=== PATIENT | male | born 2000 | race Caucasian/White ===

== ENCOUNTER 2022-04-05 13:03 | Emergency (ER) | payer SELFPAY ==
[~2022-04-05] VITALS: Ht 152 cm; Wt 74.0 kg
--- NOTE | 2022-04-05 14:51 | ED General ---
General Chief Complaint: General Problems/Pain Stated Complaint: ANXIETY,PSYCH Nursing Triage Note: PT AMB TO ED BY POV AND REPORTS HE DRANK A MONSTER ENERGY DRINK AT 0800 YESTERDAY AND BEGAN FEELING LIKE HIS "BLOOD WAS JUMPING INSIDE HIS BODY" AND HASN'T BEEN ABLE TO SLEEP SINCE. PT REPORTS HIS "MIND IS SPINNING," DIZZINESS, NO APPETITE, AND IS FEELING GENERAL DISCOMFORT. REPORTS HE HAS HAD A COUPLE OF TORTILLAS TO EAT AND HAS DRANK COFFEE. PT DENIES ANY SX PRIOR TO DRINKING THE ENERGY DRINK. Source of Information: Patient Exam Limitations: Language Barrier History of Present Illness Date Seen by Provider: Apr 05, 2022 Time Seen by Provider: 14:49 Initial Comments Patient is a 21-year-old male who presents ED with chest pain, heart palpitations. Symptoms started around 12:00 yesterday after getting off work. States feels like his chest is tight and beating fast. Also reports feels like his mind is spinning with dizziness. No appetite and states he does not feel well with generalized discomfort. Reports some abdominal discomfort with nausea. Denies any vomiting. Has been taken Benadryl without much improvement. He has been able to eat small amount of tortillas and drink some coffee. Denies of any similar symptoms prior to drinking energy drink in the past. Denies of any suicidal homicidal thoughts. Denies vomiting, diarrhea fever, cough, headache, dizziness. Has not been able to sleep since yesterday. Requesting something to help him sleep and further evaluation of his symptoms. Denies of any cardiac history, pulmonary history or known medical problems. Allergies and Home Medications Allergies Coded Allergies: No Known Drug Allergies (Unverified , 04/05/22) Patient Home Medication List Home Medication List Reviewed: Yes Hydroxyzine HCl (Hydroxyzine HCl) 50 Mg Tablet, 50 MG PO Q8H PRN for ANXIETY Prescribed by: FAROOQ SAENZ on 04/05/22 0400 Review of Systems Review of Systems Constitutional: No chills, No diaphoresis EENTM: No ear pain, No blurred vision, No double vision, No eye pain Respiratory: No cough, No dyspnea on exertion, No short of breath Cardiovascular: chest pain, palpitations Gastrointestinal: abdominal pain; No diarrhea; nausea; No vomiting Genitourinary: No decreased output, No discharge Musculoskeletal: No back pain, No joint pain Skin: No change in color, No change in hair/nails Psychiatric/Neurological: Denies Anxiety, Denies Depressed All Other Systems Reviewed Negative Unless Noted: Yes Past Fprfndk-Cpkwhu-Gndqzf Hx Patient Social History Tobacco Use?: No Use of E-Cig and/or Vaping dev: No Substance use?: No Alcohol Use?: No Pt feels they are or have been: No Immunizations Up To Date Influenza Vaccine Up-to-Date: No; Not Current Physical Exam Vital Signs Vital Signs - First Documented 04/05/22 13:10 Temp 36.5 Pulse 85 Resp 18 B/P (MAP) 161/91 (114) Pulse Ox 98 O2 Delivery Room Air Capillary Refill : Less Than 3 Seconds Height, Weight, BMI Height: '" Weight: lbs. oz. kg; 32.00 BMI Method: General Appearance: No Apparent Distress, WD/WN Eyes: Bilateral Eye Normal Inspection, Bilateral Eye PERRL, Bilateral Eye EOMI HEENT: PERRL/EOMI, TMs Normal, Normal ENT Inspection, Pharynx Normal Neck: Full Range of Motion, Normal Inspection, Non Tender, Supple Respiratory: Chest Non Tender, Lungs Clear, Normal Breath Sounds, No Accessory Muscle Use, No Respiratory Distress Cardiovascular: Regular Rate, Rhythm, No Edema, No Gallop, No JVD, No Murmur Gastrointestinal: Normal Bowel Sounds, No Organomegaly, No Pulsatile Mass, Non Tender, Soft Extremity: Normal Capillary Refill, Normal Inspection Neurologic/Psychiatric: Alert, Oriented x3, No Motor/Sensory Deficits, Normal Mood/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, 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 Norm as Tested Progress/Results/Core Measures Suspected Sepsis SIRS Temperature: Pulse: 85 Respiratory Rate: 18 Laboratory Tests 04/05/22 15:33: White Blood Count 9.5 Blood Pressure 161 /91 Mean: 114 Laboratory Tests 04/05/22 15:33: Creatinine 0.85, Platelet Count 322, Total Bilirubin 0.5 Results/Orders Lab Results Laboratory Tests Test 04/05/22 15:22 04/05/22 15:33 Range/Units Urine Color YELLOW Urine Clarity CLEAR Urine pH 6.0 5-9 Urine Specific [place] 1.025 H 1.016-1.022 Urine Protein NEGATIVE NEGATIVE Urine Glucose (UA) NEGATIVE NEGATIVE Urine Ketones NEGATIVE NEGATIVE Urine Nitrite NEGATIVE NEGATIVE Urine Bilirubin NEGATIVE NEGATIVE Urine Urobilinogen 0.2 < = 1.0 MG/DL Urine Leukocyte Esterase NEGATIVE NEGATIVE Urine RBC (Auto) 2+ H NEGATIVE Urine RBC 2-5 H /HPF Urine WBC 0-2 /HPF Urine Squamous Epithelial Cells NONE /HPF Urine Crystals NONE /LPF Urine Bacteria TRACE /HPF Urine Casts NONE /LPF Urine Mucus SMALL H /LPF Urine Culture Indicated NO Urine Opiates Screen NEGATIVE NEGATIVE Urine Oxycodone Screen NEGATIVE NEGATIVE Urine Methadone Screen NEGATIVE NEGATIVE Urine Propoxyphene Screen NEGATIVE NEGATIVE Urine Barbiturates Screen NEGATIVE NEGATIVE Ur Tricyclic Antidepressants Screen NEGATIVE NEGATIVE Urine Phencyclidine Screen NEGATIVE NEGATIVE Urine Amphetamines Screen NEGATIVE NEGATIVE Urine Methamphetamines Screen NEGATIVE NEGATIVE Urine Benzodiazepines Screen NEGATIVE NEGATIVE Urine Cocaine Screen NEGATIVE NEGATIVE Urine Cannabinoids Screen NEGATIVE NEGATIVE White Blood Count 9.5 4.3-11.0 10^3/uL Red Blood Count 5.82 H 4.30-5.52 10^6/uL Hemoglobin 15.7 13.3-17.7 g/dL Hematocrit 46 40-54 % Mean Corpuscular Volume 78 L 80-99 fL Mean Corpuscular Hemoglobin 27 25-34 pg Mean Corpuscular Hemoglobin Concent 35 32-36 g/dL Red Cell Distribution Width 13.3 10.0-14.5 % Platelet Count 322 130-400 10^3/uL Mean Platelet Volume 9.4 9.0-12.2 fL Immature Granulocyte % (Auto) 0 % Neutrophils (%) (Auto) 78 H 42-75 % Lymphocytes (%) (Auto) 13 12-44 % Monocytes (%) (Auto) 8 0-12 % Eosinophils (%) (Auto) 0 0-10 % Basophils (%) (Auto) 0 0-10 % Neutrophils # (Auto) 7.5 1.8-7.8 X 10^3 Lymphocytes # (Auto) 1.3 1.0-4.0 X 10^3 Monocytes # (Auto) 0.8 0.0-1.0 X 10^3 Eosinophils # (Auto) 0.0 0.0-0.3 10^3/uL Basophils # (Auto) 0.0 0.0-0.1 10^3/uL Immature Granulocyte # (Auto) 0.0 0.0-0.1 10^3/uL Sodium Level 137 135-145 MMOL/L Potassium Level 3.7 3.6-5.0 MMOL/L Chloride Level 102 98-107 MMOL/L Carbon Dioxide Level 23 21-32 MMOL/L Anion Gap 12 5-14 MMOL/L Blood Urea Nitrogen 13 7-18 MG/DL Creatinine 0.85 0.60-1.30 MG/DL Estimat Glomerular Filtration Rate 126 BUN/Creatinine Ratio 15 Glucose Level 129 H 70-105 MG/DL Calcium Level 10.4 H 8.5-10.1 MG/DL Corrected Calcium 8.5-10.1 MG/DL Magnesium Level 2.0 1.6-2.4 MG/DL Total Bilirubin 0.5 0.1-1.0 MG/DL Aspartate Amino Transf (AST/SGOT) 24 5-34 U/L Alanine Aminotransferase (ALT/SGPT) 24 0-55 U/L Alkaline Phosphatase 117 40-136 U/L Troponin I < 0.028 <0.028 NG/ML Total Protein 8.4 H 6.4-8.2 GM/DL Albumin 4.9 H 3.2-4.5 GM/DL Lipase 8 8-78 U/L My Orders Orders - JARRETT PANDEY PA Cbc With Automated Diff (04/05/22 14:44) Comprehensive Metabolic Panel (04/05/22 14:44) Lipase (04/05/22 14:44) Troponin I Khari (04/05/22 14:44) Ekg Tracing (04/05/22 14:44) Chest 1 View, Ap/Pa Only (04/05/22 14:44) Magnesium (04/05/22 14:44) Urinalysis (04/05/22 14:48) Drug Screen Stat (Urine) (04/05/22 14:48) Lorazepam Tablet (Ativan Tablet) (04/05/22 17:15) Medications Given in ED Current Medications Medications Dose Ordered Sig/Rhonda Route Start Time Stop Time Status Last Admin Dose Admin Lorazepam 0.5 mg ONCE ONCE PO 04/05/22 17:15 04/05/22 17:16 DC 04/05/22 17:17 0.5 MG Vital Signs/I&O 04/05/22 13:10 Temp 36.5 Pulse 85 Resp 18 B/P (MAP) 161/91 (114) Pulse Ox 98 O2 Delivery Room Air Capillary Refill : Less Than 3 Seconds Blood Pressure Mean: 114 Departure Communication (PCP) Patient with heart palpitation chest tightness and feeling anxious after drinking energy drink and coffee. Denies any drug use or alcohol use. EKG normal sinus rhythm without evidence of ST elevation, depression or arrhythmia. Cardiac work-up unremarkable. Lab work otherwise unremarkable. Patient was given Ativan with improvement of symptoms. Denies of any suicidal or homicidal thoughts. Requesting something for sleep. Recommend melatonin. We will provide Atarax as needed for anxiety. Stable vital signs. Language barrier made exam and history somewhat challenging. Return precaution were discussed with patient. Urinalysis with hematuria without evidence of infection. No flank pain or current abdominal pain. Impression Primary Impression: Palpitations Additional Impression: Anxiousness Disposition: HOME, SELF-CARE Condition: Stable Departure-Patient Inst. Decision time for Depature: 17:08 Referrals: [facility] [place],LOCAL PHYSICIAN (PCP) Primary Care Physician Patient Instructions: Palpitations (DC) Add. Discharge Instructions: Recommend taking 1 dose of melatonin 10mg right before bed. Take Atarax 50mg for anxiety every 6-8 hours. If any worsening symptoms return back to ED for further evaluation. Avoid any caffeine or energy drinks All discharge instructions reviewed with patient and/or family. Voiced understanding. Scripts Hydroxyzine HCl (Hydroxyzine HCl) 50 Mg Tablet 50 MG PO Q8H PRN for ANXIETY, #8 TAB Prov: JARRETT PANDEY 04/05/22 JARRETT PANDEY Apr 05, 2022 14:51
[2022-04-05 15:28] LABS: BILIRUBIN,URINE NEGATIVE (NEGATIVE); CLARITY,URINE CLEAR; COLOR,URINE YELLOW; GLUCOSE, URINE (UA) NEGATIVE (NEGATIVE); KETONES,URINE NEGATIVE (NEGATIVE); LEUKOCYTE ESTERASE ,URINE NEGATIVE (NEGATIVE); NITRITE,URINE NEGATIVE (NEGATIVE); PROTEIN,URINE NEGATIVE (NEGATIVE)
--- NOTE | 2022-04-05 15:35 | Diagnostic Imaging Report ---
EXAMINATION: Chest 1 view HISTORY: Chest pain COMPARISON: None available. FINDINGS: Heart size and pulmonary vasculature are normal. The lungs are clear without consolidation, pleural effusion, or pneumothorax. The osseous structures are intact. IMPRESSION: 1. No acute radiographic abnormality in the chest. Dictated by: Dictated on workstation # [id number]
[2022-04-05 15:39] LABS: AMPHETAMINE SCREEN, URINE NEGATIVE (NEGATIVE); BARBITURATE SCREEN URINE NEGATIVE (NEGATIVE); BENZODIAZEPINES SCREEN URINE NEGATIVE (NEGATIVE); CANNABINOID SCREEN, URINE NEGATIVE (NEGATIVE); COCAINE SCREEN URINE NEGATIVE (NEGATIVE); METHADONE STAT NEGATIVE (NEGATIVE); OPIATE SCREEN URINE NEGATIVE (NEGATIVE); OXYCODONE STAT NEGATIVE (NEGATIVE); PROPOXYPHENE STAT NEGATIVE (NEGATIVE); TRICYCLIC ANTIDEPRESSANTS SCRE NEGATIVE (NEGATIVE)
[2022-04-05 15:40] LABS: BASOPHILS % (AUTO) 0 % (0-10); EOSINOPHILS % (AUTO) 0 % (0-10); HEMATOCRIT 46 % (40-54); HEMOGLOBIN 15.7 g/dL (13.3-17.7); LYMPHOCYTES # (AUTO) 1.3 X 10^3 (1.0-4.0); LYMPHOCYTES % (AUTO) 13 % (12-44); MEAN CORPUSCULAR HEMOGLOBIN 27 pg (25-34); MEAN CORPUSCULAR HGB CONC 35 g/dL (32-36); MEAN CORPUSCULAR VOLUME 78 fL (80-99); MEAN PLATELET VOLUME 9.4 fL (9.0-12.2); MONOCYTES # (AUTO) 0.8 X 10^3 (0.0-1.0); MONOCYTES % (AUTO) 8 % (0-12); NEUTROPHILS # (AUTO) 7.5 X 10^3 (1.8-7.8); NEUTROPHILS % (AUTO) 78 % (42-75); PLATELET COUNT 322 10^3/uL (130-400); WHITE BLOOD COUNT 9.5 10^3/uL (4.3-11.0)
[2022-04-05 15:43] LABS: BACTERIA,URINE TRACE /HPF; WBC,URINE 0-2 /HPF
[2022-04-05 15:48] LABS: ALBUMIN 4.9 GM/DL (3.2-4.5); CHLORIDE 102 MMOL/L (98-107); POTASSIUM 3.7 MMOL/L (3.6-5.0); SODIUM 137 MMOL/L (135-145)
[2022-04-05 15:49] LABS: CALCIUM 10.4 MG/DL (8.5-10.1)
[2022-04-05 15:50] LABS: GLUCOSE 129 MG/DL (70-105); TOTAL PROTEIN 8.4 GM/DL (6.4-8.2)
[2022-04-05 15:51] LABS: CARBON DIOXIDE 23 MMOL/L (21-32)
[2022-04-05 15:52] LABS: BILIRUBIN,TOTAL 0.5 MG/DL (0.1-1.0)
[2022-04-05 15:54] LABS: ALKALINE PHOSPHATASE 117 U/L (40-136); CREATININE SERUM 0.85 MG/DL (0.60-1.30); GFR ESTIMATED 126
[2022-04-05 15:55] LABS: BUN/CREATININE RATIO 15
[2022-04-05 15:57] LABS: ALANINE AMINOTRANSFERASE 24 U/L (0-55)
[2022-04-05 15:58] LABS: LIPASE 8 U/L (8-78)
[2022-04-05] MEDS ORDERED: HYDR50TA76 PO (17:10)
[2022-04-05] MEDS ORDERED: LORazepam 0.5 MG (ATIVAN) TABLET PO ONE (17:15)
[2022-04-05 17:21] VITALS: BP 147/88
== END 2022-04-05 17:33 | disposition home or self-care (01) ==
LOC: ER 13:05
DX: F41.9 Anxiety disorder, unspecified (principal); R00.2 Palpitations; R07.89 Other chest pain
CPT/HCPCS: 36415; 71045; 80053; 80306; 81000; 83690; 83735; 84484; 85025; 93005

== ENCOUNTER 2022-04-09 15:54 | Emergency (ER) | payer SELFPAY ==
[~2022-04-09] VITALS: Ht 167 cm; Wt 72.5 kg
[~2022-04-09 15:54] MED LIST: HYDR50TA76 PO
--- NOTE | 2022-04-09 16:29 | ED Abdominal Pain ---
General Chief Complaint: Abdominal/GI Problems Stated Complaint: STOMACH PAIN/UNABLE TO EAT Nursing Triage Note: pt presents to ed with complaints of abdominal pain, dark stools, nausea, and weaknesss since monday after drinking a monster in the heat. 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 21-year-old male presents to the emergency department by private vehicle chief complaint of epigastric/upper abdominal discomfort, nausea, burning in his abdomen and lower chest. He endorses muscle aches all over. He generally does not feel well. He reports dark stools since last Monday. He states all the symptoms started after he drank a "monster" while working out in the heat last . Patient was seen here in the emergency department 4 days ago with symptoms of chest discomfort/tightness, palpitations, mild nausea and dizziness. He was treated with hydroxyzine. He endorsed insomnia at the same time. He states his symptoms have persisted all week. No fevers or chills. No diarrhea but "dark" stool. He states his urine is very yellow. He has had decreased appetite over the last week. He has quite pressured speech. He seems rather agitated. He has a negative past medical history, no surgeries, no allergies. He does not drink alcohol use illicit drugs or smoke cigarettes. He has not taken anything other than the medications prescribed to him earlier in the week. All other review of systems reviewed and negative except as stated Timing/Duration: 1 Week Severity/Quality: Severe, Aching, Burning Location: Epigastric Radiation: No Radiation Activities at Onset: Other (work) Associated Symptoms: Fatigue, Heartburn, Nausea/Vomiting, Other (muscle cramps) Allergies and Home Medications Allergies Coded Allergies: No Known Drug Allergies (Unverified , 04/05/22) Patient Home Medication List Home Medication List Reviewed: Yes Hydroxyzine HCl (Hydroxyzine HCl) 50 Mg Tablet, 50 MG PO Q8H PRN for ANXIETY Prescribed by: FAROOQ SAENZ on 04/05/22 1710 Review of Systems Review of Systems Constitutional: see HPI EENTM: No Symptoms Reported Respiratory: No Symptoms Reported Cardiovascular: No Symptoms Reported Gastrointestinal: Abdominal Pain, Nausea, Poor Appetite, Other ("dark stools") Genitourinary: Other ("yellow" urine) Musculoskeletal: muscle cramps Skin: no symptoms reported Psychiatric/Neurological: Anxiety All Other Systems Reviewed Negative Unless Noted: Yes Past Nzidbzm-Uafgaf-Tfzqom Hx Patient Social History Tobacco Use?: No Substance use?: No Alcohol Use?: No Pt feels they are or have been: No Physical Exam Vital Signs Vital Signs - First Documented 04/09/22 16:14 Temp 37.3 Pulse 86 Resp 16 B/P (MAP) 143/75 (97) Pulse Ox 98 Capillary Refill : Less Than 3 Seconds Height/Weight/BMI Height: '" Weight: lbs. oz. kg; 25.00 BMI Method: General Appearance: WD/WN, mild distress HEENT: PERRL/EOMI (conjunctivae appear normal), other (dry mucous membranes) Neck: normal inspection Respiratory: lungs clear, normal breath sounds, no respiratory distress, no accessory muscle use Cardiovascular: regular rate, rhythm (not tachycardic) Gastrointestinal: soft, tenderness (minimal tenderness epigastrum; normal BS) Genital/Rectal: other (fecal occult at the bedside - negative) Extremities: normal range of motion, non-tender, normal inspection, no pedal edema, normal capillary refill Neurologic/Psychiatric: alert, normal mood/affect, oriented x 3 Skin: normal color, warm/dry Progress/Results/Core Measures Results/Orders Lab Results Laboratory Tests Test 04/09/22 16:25 04/09/22 16:56 Range/Units White Blood Count 6.3 4.3-11.0 10^3/uL Red Blood Count 5.31 4.30-5.52 10^6/uL Hemoglobin 14.4 13.3-17.7 g/dL Hematocrit 43 40-54 % Mean Corpuscular Volume 80 80-99 fL Mean Corpuscular Hemoglobin 27 25-34 pg Mean Corpuscular Hemoglobin Concent 34 32-36 g/dL Red Cell Distribution Width 13.3 10.0-14.5 % Platelet Count 298 130-400 10^3/uL Mean Platelet Volume 9.5 9.0-12.2 fL Immature Granulocyte % (Auto) 0 % Neutrophils (%) (Auto) 75 42-75 % Lymphocytes (%) (Auto) 18 12-44 % Monocytes (%) (Auto) 7 0-12 % Eosinophils (%) (Auto) 0 0-10 % Basophils (%) (Auto) 1 0-10 % Neutrophils # (Auto) 4.7 1.8-7.8 10^3/uL Lymphocytes # (Auto) 1.1 1.0-4.0 10^3/uL Monocytes # (Auto) 0.4 0.0-1.0 10^3/uL Eosinophils # (Auto) 0.0 0.0-0.3 10^3/uL Basophils # (Auto) 0.0 0.0-0.1 10^3/uL Immature Granulocyte # (Auto) 0.0 0.0-0.1 10^3/uL Sodium Level 151 H 135-145 MMOL/L Potassium Level 4.0 3.6-5.0 MMOL/L Chloride Level 120 H 98-107 MMOL/L Carbon Dioxide Level 22 21-32 MMOL/L Anion Gap 9 5-14 MMOL/L Blood Urea Nitrogen 9 7-18 MG/DL Creatinine 0.93 0.60-1.30 MG/DL Estimat Glomerular Filtration Rate 119 BUN/Creatinine Ratio 10 Glucose Level 122 H 70-105 MG/DL Calcium Level 9.5 8.5-10.1 MG/DL Corrected Calcium 9.4 8.5-10.1 MG/DL Total Bilirubin 0.5 0.1-1.0 MG/DL Aspartate Amino Transf (AST/SGOT) 20 5-34 U/L Alanine Aminotransferase (ALT/SGPT) 22 0-55 U/L Alkaline Phosphatase 80 40-136 U/L Total Creatine Kinase 97 30-200 U/L Total Protein 6.8 6.4-8.2 GM/DL Albumin 4.1 3.2-4.5 GM/DL Lipase 9 8-78 U/L Urine Color YELLOW Urine Clarity CLEAR Urine pH 7.0 5-9 Urine Specific [place] 1.015 L 1.016-1.022 Urine Protein NEGATIVE NEGATIVE Urine Glucose (UA) NEGATIVE NEGATIVE Urine Ketones NEGATIVE NEGATIVE Urine Nitrite NEGATIVE NEGATIVE Urine Bilirubin NEGATIVE NEGATIVE Urine Urobilinogen 0.2 < = 1.0 MG/DL Urine Leukocyte Esterase NEGATIVE NEGATIVE Urine RBC (Auto) TRACE-I H NEGATIVE Urine RBC NONE /HPF Urine WBC NONE /HPF Urine Squamous Epithelial Cells NONE /HPF Urine Crystals NONE /LPF Urine Bacteria NEGATIVE /HPF Urine Casts NONE /LPF Urine Mucus NEGATIVE /LPF Urine Culture Indicated NO My Orders Orders - SKY RAPHAEL MD Occult Blood Stool (04/09/22 16:22) Ed Iv/Invasive Line Start (04/09/22 16:22) Cbc With Automated Diff (04/09/22 16:22) Comprehensive Metabolic Panel (04/09/22 16:22) Lipase (04/09/22 16:22) Creatine Kinase (04/09/22 16:22) Ua Culture If Indicated (04/09/22 16:22) Ns Iv 1000 Ml (Sodium Chloride 0.9%) (04/09/22 16:30) Lidocaine 2% Viscous 15 Ml (Xylocaine Vi (04/09/22 16:30) Antacid Suspension (Mylanta Suspension (04/09/22 16:30) Sucralfate Tablet (Carafate Tablet) (04/09/22 16:30) Ketorolac Injection (Toradol Injection) (04/09/22 17:45) Medications Given in ED Current Medications Medications Dose Ordered Sig/Rhonda Route Start Time Stop Time Status Last Admin Dose Admin Al Hydrox/Mg Hydrox/Simethicone 30 ml ONCE ONCE PO 04/09/22 16:30 04/09/22 16:31 DC 04/09/22 16:55 30 ML Lidocaine HCl 5 ml ONCE ONCE PO 04/09/22 16:30 04/09/22 16:31 DC 04/09/22 16:55 5 ML Sucralfate 1 gm ONCE ONCE PO 04/09/22 16:30 04/09/22 16:31 DC 04/09/22 16:56 1 GM Vital Signs/I&O 04/09/22 16:14 Temp 37.3 Pulse 86 Resp 16 B/P (MAP) 143/75 (97) Pulse Ox 98 Blood Pressure Mean: 97 Progress Progress Note : Time: 17:44 Progress Note Patient feels a little better after GI cocktail and fluids. Labs reviewed and all are within normal limits. His abdominal exam remains reassuring, non distended, no tenderness no rebound or involuntary guarding. He is not febrile, tachycardic or hypotensive. He was standing at the bedside urinating when I went in to reassess him. Urine is a nice clear yellow. We will give him some Toradol for his residual pain. He will be strongly encouraged to follow-up with [facility]. Return precautions will be given. No clinical or objective findings to warrant further laboratory studies or imaging at this time. Departure Impression Primary Impression: Abdominal pain Qualified Codes: R10.84 - Generalized abdominal pain Disposition: 01 HOME, SELF-CARE Condition: Stable Departure-Patient Inst. Decision time for Depature: 17:45 Referrals: [facility],LOCAL PHYSICIAN (PCP) Primary Care Physician Patient Instructions: Abdominal Pain, Adult ED Add. Discharge Instructions: You have no findings today that indicate you need and CT scans or an ultrasound. You most likely have severe acid reflux. Drink plenty of fluids to stay well-hydrated. Take an [id number] acid industrial trainer such as Prilosec or Pepcid daily. Stop drinking monsters. Please call and follow-up with [facility] next week. If you get a fever or have worse pain with vomiting please come back to the emergency room for reevaluation. You can also take [id number] Tylenol or ibuprofen as needed for pain. No tiene hallazgos hoy que indiquen que necesita tomografas computarizadas o belgica ecografa. Lo ms probable es que tenga reflujo cido chon. Lashonda muchos lquidos para mantenerse becky hidratado. [place] un reductor de cido de venta brittany maria teresa Prilosec o Pepcid diariamente. Flower de beber monstruos. Por favor llame y ruben un seguimiento con [facility] la prxima semana. Si tiene fiebre o tiene un dolor peor con los vmitos, regrese a la asif de emergencias para belgica reevaluacin. Kim puede angel Tylenol o ibuprofeno de venta brittany segn sea necesario para el dolor. SKY RAPHAEL MD Apr 09, 2022 16:29
[2022-04-09 16:30] LABS: BASOPHILS % (AUTO) 1 % (0-10); EOSINOPHILS % (AUTO) 0 % (0-10); HEMATOCRIT 43 % (40-54); HEMOGLOBIN 14.4 g/dL (13.3-17.7); LYMPHOCYTES # (AUTO) 1.1 10^3/uL (1.0-4.0); LYMPHOCYTES % (AUTO) 18 % (12-44); MEAN CORPUSCULAR HEMOGLOBIN 27 pg (25-34); MEAN CORPUSCULAR HGB CONC 34 g/dL (32-36); MEAN CORPUSCULAR VOLUME 80 fL (80-99); MEAN PLATELET VOLUME 9.5 fL (9.0-12.2); MONOCYTES # (AUTO) 0.4 10^3/uL (0.0-1.0); MONOCYTES % (AUTO) 7 % (0-12); NEUTROPHILS # (AUTO) 4.7 10^3/uL (1.8-7.8); NEUTROPHILS % (AUTO) 75 % (42-75); PLATELET COUNT 298 10^3/uL (130-400); WHITE BLOOD COUNT 6.3 10^3/uL (4.3-11.0)
[2022-04-09] MEDS ORDERED: SUCRALFATE 1 GM (CARAFATE) TAB PO ONE (16:30)
[2022-04-09] MEDS ORDERED: NS IV 1000 ML 1,000 ML IV SCH (16:30)
[2022-04-09] MEDS ORDERED: ANTACID SUSP 30 ML UDC (MYLANTA) PO ONE (16:30)
[2022-04-09] MEDS ORDERED: LIDOCAINE 2% VISCOUS 15 ML UDC PO ONE (16:30)
[2022-04-09 16:42] LABS: ALBUMIN 4.1 GM/DL (3.2-4.5)
[2022-04-09 16:43] LABS: CALCIUM 9.5 MG/DL (8.5-10.1)
[2022-04-09 16:45] LABS: TOTAL PROTEIN 6.8 GM/DL (6.4-8.2)
[2022-04-09 16:46] LABS: BILIRUBIN,TOTAL 0.5 MG/DL (0.1-1.0)
[2022-04-09 16:48] LABS: CREATININE SERUM 0.93 MG/DL (0.60-1.30)
[2022-04-09 17:01] LABS: BILIRUBIN,URINE NEGATIVE (NEGATIVE); CLARITY,URINE CLEAR; COLOR,URINE YELLOW; GLUCOSE, URINE (UA) NEGATIVE (NEGATIVE); KETONES,URINE NEGATIVE (NEGATIVE); LEUKOCYTE ESTERASE ,URINE NEGATIVE (NEGATIVE); NITRITE,URINE NEGATIVE (NEGATIVE); PROTEIN,URINE NEGATIVE (NEGATIVE)
[2022-04-09 17:16] LABS: BACTERIA,URINE NEGATIVE /HPF
[2022-04-09] MEDS ORDERED: KETOROLAC 30 MG/ML VIAL IVP ONE (17:45)
[2022-04-09 18:19] VITALS: BP 124/74
== END 2022-04-09 18:19 | disposition home or self-care (01) ==
LOC: EDUNIT# 15:54 → ER 15:56
DX: R10.13 Epigastric pain (principal); Z28.310 Unvaccinated for COVID-19
CPT/HCPCS: 36415; 80053; 81000; 82274; 82550; 83690; 85025